=== PATIENT | male | born 1975 | race Asian ===

== ENCOUNTER 2017-02-26 21:30 | Emergency (ER) | payer OTHER ==
[~2017-02-26] VITALS: Ht 175.3 cm; Wt 97.5 kg
[2017-02-26 21:33] VITALS: BP 128/86
--- NOTE | 2017-02-26 21:38 | NUR ---
PT TAKEN TO BED 10
--- NOTE | 2017-02-26 21:40 | NUR ---
41Y/M PT. PRESENTS TO ED WITH C/O CHEST PAIN WITH HEART PALPITATION X 30 MINS. PT. STATES HX. WPW SYNDROME, HAVING EPISODE OF PALPITATIONS ON AND OFF, PERSISTANT X 30 MINS. AAO X4, AMBULATORY WITH STEDAY GAIT. GCS 15, RESPIRATIONS TOOM AIR, EVEN AND UNLABORED, BL LUNG CLEAR. C/O HEART PALPITATION, EKG SVT HR 220 BPM, DR. HANNAH AT BEDSIDE EVALUATE PT.
--- NOTE | 2017-02-26 21:44 | NUR ---
Dr. Jarrell evaluating patient at bedside.
[2017-02-26] MEDS ORDERED: ADENOSINE 6 MG/2 ML VIAL IVP ONE ×3 (21:45→21:55)
--- NOTE | 2017-02-26 21:49 | NUR ---
ADENOSINE 6 MG IVP BP 101/80 P210
--- NOTE | 2017-02-26 21:51 | NUR ---
ADENOSINE 12 MG IVP HR 209 BPM
[2017-02-26] MEDS ORDERED: VERAPAMIL 5 MG/2 ML VIAL IVP ONE ×3 (21:55→22:55)
[2017-02-26] MEDS ORDERED: LORazepam 2 MG/ML VIAL IVP ONE ×2 (21:55→22:30)
--- NOTE | 2017-02-26 22:00 | NUR ---
PT. REFUSE BLOOD DRAW FOR BLOOD CULTURE, ANNA HERNANDEZ MADE AWARE.
[2017-02-26] MEDS ORDERED: MIDAZOLAM 2 MG/2 ML VIAL ONE (22:03)
[2017-02-26] MEDS ORDERED: LORazepam 2 MG/ML VIAL ONE (22:03)
[2017-02-26 22:23] LABS: HEMATOCRIT 54.1 % (36-52); HEMOGLOBIN 17.8 g/dL (12.0-18.0); MEAN CORPUSCULAR HEMOGLOBIN 29 pg (27-31); MEAN CORPUSCULAR HGB CONC 33 g/dL (33-37); MEAN CORPUSCULAR VOLUME 87 fL (80-94); PLATELET COUNT (AUTO) 351 K/uL (140-450); RED CELL DISTRIBUTION WIDTH 14.8 % (11.6-13.7)
[2017-02-26 22:43] LABS: EOSINOPHILS % (MANUAL) 5 % (0-4); LYMPHOCYTES % (MANUAL) 17 % (20-46); MONOCYTES % (MANUAL) 7 % (5-12)
[2017-02-26 22:44] LABS: PROTHROMBIN TIME 12.1 secs (10.8-13.4)
[2017-02-26 22:48] LABS: ANION GAP 12.2 (8-16); CARBON DIOXIDE 26.6 mmol/L (21-32); CREATININE 1.6 mg/dL (0.7-1.3); POTASSIUM 3.8 mmol/L (3.5-5.1)
[2017-02-26 22:53] LABS: ALBUMIN 3.4 g/dL (3.4-5.0); TOTAL BILIRUBIN 0.3 mg/dL (0.0-1.0)
[2017-02-26] MEDS ORDERED: NACL 0.9% 1,000 ML IV ONE (23:05)
--- NOTE | 2017-02-26 23:30 | NUR ---
PT. REFUSED CT, ER MADE AWARE
--- NOTE | 2017-02-26 23:40 | NUR ---
Renetta fitzpatrick in ED - 02/27/[address] HANNAH EXPLAINED RISK AND BENEFIT OF TREATMENT JASON, PT. VERBALIZED UNDERSTANDING. PT. REFUSED FURTHER EVALUATION AND TREATMENT.
--- NOTE | 2017-02-26 23:40 | NUR ---
DR. HANNAH EXPLAINED RISK AND BENEFIT OF TREATMENT PLAN, PT. VERBALIZED UNDERSTANDING. PT. REFUSED FURTHER EVALUATION AND TREATMENT.
--- NOTE | 2017-02-26 23:45 | NUR ---
Patient does not wish to proceed with medical care recommended by DR. HANNAH. Patient given information related to possible complications, up to and including , which could occur as a result of leaving hospital at this time. Patient verbalizes understanding of risks involved leaving against medical advice. Patient has signed AMA form.
[2017-02-27 01:07] VITALS: BP 130/80
== END 2017-02-26 23:45 | disposition left against medical advice (07) ==
LOC: MED 21:30
DX: I47.1 Supraventricular tachycardia (principal); N17.9 Acute kidney failure, unspecified; I10 Essential (primary) hypertension
CPT/HCPCS: 36415; 71010; 80053; 83605; 83735; 83880; 84484; 85025; 85610; 85730; 93005; 96374; 96375; 99291; J0153; J2060; J3490; Q0092; J2250; J7030